=== PATIENT | male | born 1955 | race African-American/Black ===

== ENCOUNTER 2016-12-01 05:14 | Emergency (ER) | payer BC, OTHER ==
[2016-12-01 05:37] VITALS: BP 165/79; PULSE 59; TEMP 98.3; BMI 33.2
[2016-12-01] MEDS ORDERED: IBUPROFEN 400 MG TABLET (FP) PO ONE ×2 (05:46→05:49)
--- NOTE | 2016-12-01 05:54 | PDOC ---
History of Present Illness - General History Source: Patient <Alfredito Cerna - Last Filed: 12/01/16 06:19> - General History Source: Patient Exam Limitations: No Limitations - History of Present Illness Initial Comments: 12/01/16 05:54 The patient is a 60 year old male with significant past medical history of hypertension who presents to the ED for pain and swelling of the right knee s/p mechanical fall prior to arrival. 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 No head trauma or LOC. States he sustained pain and swelling of the right knee. Patient also states he felt a pop and is unable to bear weight secondary to pain. The patient denies fever, chills, cough, SOB, chest pain, and palpitations. The patient denies abdominal pain, nausea, vomiting, and diarrhea. Allergies: penicillin Social History: No alcohol, tobacco, or drug use reported. Past Surgical History: appendectomy PCP: Dr. Vanesa Hung <Carola Angeles - Last Filed: 12/01/16 06:25> - General Chief Complaint: Pain, Acute Stated Complaint: RIGHT KNEE INJURY Time Seen by Provider: 12/01/16 05:44 Past History - Past Medical History HTN: Yes - Surgical History Appendectomy: Yes - Immunization History Immunization Up to Date: Yes - Psycho/Social/Smoking Cessation Hx Anxiety: No Suicidal Ideation: No Smoking Status: No Smoking History: Never smoked Have you smoked in the past 12 months: No Number of Cigarettes Smoked Daily: 0 Information on smoking cessation initiated: No Hx Alcohol Use: Yes Drug/Substance Use Hx: No Substance Use Type: None <Aidee Cernaan - Last Filed: 12/01/16 06:19> <Carola Angeles - Last Filed: 12/01/16 06:25> - Past Medical History Allergies/Adverse Reactions: Allergies Allergy/AdvReac Type Severity Reaction Status Date / Time Penicillins Allergy Intermediate Verified 12/01/16 05:29 Home Medications: Ambulatory Orders Ibuprofen 800 mg PO TID #30 tablet 12/01/16 Nebivolol HCl [Bystolic] 10 mg PO DAILY 12/01/16 Oxycodone HCl/Acetaminophen [Percocet 5-325 mg Tablet] 1 - 2 tab PO Q6H #20 tablet MDD 4 12/01/16 Review of Systems - Review of Systems Able to Perform ROS?: Yes Comments:: 12/01/16 05:55 CONSTITUTIONAL: Absent: fever, no chills, no fatigue EYES: Absent: visual changes ENT: Absent: ear pain, no sore throat CARDIOVASCULAR: Absent: chest pain, no palpitations RESPIRATORY: Absent: cough, no SOB GI: Absent: abdominal pain, no nausea, no vomiting, no constipation, no diarrhea GENITOURINARY: Absent: dysuria, no frequency, no hematuria MUSCULOSKELETAL: +right knee pain and swelling Absent: back pain, no myalgia SKIN: Absent: rash NEURO: Absent: headache <Carola Angeles - Last Filed: 12/01/16 06:25> *Physical Exam - Vital Signs Last Vital Signs Temp Pulse Resp BP Pulse Ox 98.3 F 59 L 20 165/79 99 12/01/16 05:23 12/01/16 05:23 12/01/16 05:23 12/01/16 05:23 12/01/16 05:23 <Alfredito Cerna - Last Filed: 12/01/16 06:19> - Vital Signs Last Vital Signs Temp Pulse Resp BP Pulse Ox 98.3 F 59 L 20 165/79 99 12/01/16 05:23 12/01/16 05:23 12/01/16 05:23 12/01/16 05:23 12/01/16 05:23 - Physical Exam Comments: 12/01/16 05:55 GENERAL: Well-appearing, well-nourished. No apparent distress. HEENT: Normocephalic, atraumatic. No racoon or pinedo sign. PERRL, EOM intact. No hemotympanum. CARDIOVASCULAR: Normal S1, S2. Regular rate and rhythm. PULMONARY: Clear to auscultation bilaterally. ABDOMEN: Soft, non-distended, non-tender. EXTREMITIES: Decreased ROM of the right knee secondary to pain. Tenderness and moderate swelling throughout the entire right patella region. No bony deformity. No calf tenderness. SKIN: Warm, dry. No rash NEUROLOGICAL: No focal neurological deficits. <Carola Angeles - Last Filed: 12/01/16 06:25> ED Treatment Course - RADIOLOGY Radiology Studies Ordered: Category Date Time Status KNEE 3 POS-RIGHT [RAD] Stat Radiology 12/01/16 05:46 Ordered <Alfredito Cerna - Last Filed: 12/01/16 06:19> Medical Decision Making - Medical Decision Making 12/01/16 06:21 Dr. Cerna: The scribe's documentation has been prepared under my direction and personally reviewed by me in its entirery. I confirm that the note above accurately reflects all work, treatment, procedures, and medical decision making performed by me. <Alfredito Cerna - Last Filed: 12/01/16 06:19> - Medical Decision Making 12/01/16 06:[address] Vanesa Hung (via answering service) at 6:24 Awaiting call back 12/01/16 06:25 patient's case discussed with Dr. Hung at 6:25 <Carola Angeles - Last Filed: 12/01/16 06:25> *DC/Admit/Observation/Transfer - Discharge Dispostion Admit: No <Alfredito Cerna - Last Filed: 12/01/16 06:19> - Attestations Scribe Attestion: 12/01/16 05:55 Documentation prepared by Carola Angeles, acting as medical communication specialist for Alfredito Cerna MD/DO. <Carola Angeles - Last Filed: 12/01/16 06:25> Diagnosis at time of Disposition: Patellar fracture Qualifiers: Encounter type: initial encounter Fracture type: closed Fracture morphology: unspecified fracture morphology Fracture alignment: nondisplaced Laterality: right Qualified Code(s): S82.001A - Unspecified fracture of right patella, initial encounter for closed fracture - Discharge Dispostion Disposition: HOME Condition at time of disposition: Fair - Prescriptions Prescriptions: Ibuprofen 800 mg PO TID #30 tablet Oxycodone HCl/Acetaminophen [Percocet 5-325 mg Tablet] 1 - 2 tab PO Q6H #20 tablet MDD 4 - Referrals Referrals: Vanesa Hung MD [Primary Care Provider] - Robert Dewitt MD [Staff Physician] - - Patient Instructions Printed Discharge Instructions: DI for Patella Fracture Additional Instructions: Rest, ice elevate leg as much as possible. use crutches for weight bering. TAke medications as needed - Post Discharge Activity Work/School Note: Back to Work
== END 2016-12-01 06:45 | disposition home or self-care (01) ==
LOC: JER 05:14
DX: S82.001A Unspecified fracture of right patella, initial encounter for closed fracture (principal); V78.4XXA Person boarding or alighting from bus injured in noncollision transport accident, initial encounter; Y92.488 Other paved roadways as the place of occurrence of the external cause; Y93.89 Activity, other specified; Y99.0 Civilian activity done for income or pay; I10 Essential (primary) hypertension
CPT/HCPCS: 73562-TC-RT; 99282-25

== ENCOUNTER 2018-03-08 04:20 | Emergency (ER) | payer OTHER ==
[2018-03-08 04:33] VITALS: BMI 32.5
[2018-03-08] MEDS ORDERED: NEBIVOLOL 10 MG TABLET (FP) PO ONE (04:35)
[2018-03-08] MEDS ORDERED: SODIUM CHLORIDE 0.9% 1000 ML INFUS.BAG IV ONE (04:36)
[2018-03-08] MEDS ORDERED: ACETAMINOPHEN 1000 MG/100 ML VIAL (NON FORMULARY) IVPB ONE (04:36)
[2018-03-08] MEDS ORDERED: ACETAMINOPHEN INJECTION 100 ML IVPB ONE (04:55)
--- NOTE | 2018-03-08 05:11 | PDOC ---
Attending Attestation - Resident Resident Name: Rik Rossony - ED Attending Attestation I have performed the following: I have examined & evaluated the patient, The case was reviewed & discussed with the resident, I agree w/resident's findings & plan - HPI HPI: 03/08/18 05:07 62-year-old male with history of hypertension presents with 1 day of nasal congestion, sore throat, chest congestion with dry cough, body aches. No fevers or chills, no recent travel, no shortness of breath or persistent chest pain. Nonsmoker, has no underlying lung disease. 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 No history of recurring pneumonia or pharyngitis, no painful swallowing or difficulty swallowing. Patient was on his way to work this morning. Had myalgias and a slight headache so he presents to the emergency department for work note. - Physicial Exam PE: 03/08/18 05:09 Vital signs normal, blood pressure notably elevated at 180/110, has not taken his blood pressure medications yet. Well-appearing lying comfortably in stretcher, speaking full sentences, no respiratory distress Positive nasal congestion, Oropharynx is clear, slight erythema without swelling , no exudate or plaque Neck is supple, no notable lymphadenopathy Lungs are clear, no accessory muscle use, no wheezing Heart is regular, no murmur Neurologically intact, no edema - Medical Decision Making 03/08/18 05:10 62-year-old male with nasal congestion, dry cough, myalgias that seem most consistent with early viral URI. No clinical evidence for pneumonia, patient is well-appearing with normal vital signs in no acute respiratory distress. The patient does have elevated blood pressures without red flags on history or physical exam, no evidence for ACS. EKG is normal CXR We'll check labs and gave IV fluid rehydration with Tylenol Reassess and disposition accordingly Heart Score/ECG Review #1 ECG reviewed & interpreted by me at: 04:50 General ECG Interpretation: Sinus Rhythm, Normal Rate, Normal Intervals (RBBB), No acute ischemic changes
--- NOTE | 2018-03-08 05:11 | PDOC ---
History of Present Illness - General Chief Complaint: Sore Throat Stated Complaint: THROAT PAIN Time Seen by Provider: 03/08/18 04:25 History Source: Patient Exam Limitations: No Limitations - History of Present Illness Initial Comments: 03/08/18 04:50 The patient is a 62M with a PMH of HTN who presents to the ER with complaints of chest tightness, sore throat, and headache. The patient states that yesterday he developed tightness in his chest and a "rattle" when he coughed. He states that since then, his sickness has progressed to a sore throat, runny nose, and headache. He admits to an intermittent cough and 1 bout of diarrhea but denies fever, chills, nausea, vomiting, current CP, and SOB. Past History - Past Medical History Allergies/Adverse Reactions: Allergies Allergy/AdvReac Type Severity Reaction Status Date / Time Penicillins Allergy Intermediate Verified 03/08/18 04:33 Home Medications: Ambulatory Orders Ibuprofen 800 mg PO TID #30 tablet 12/01/16 Nebivolol HCl [Bystolic] 10 mg PO DAILY 12/01/16 Oxycodone HCl/Acetaminophen [Percocet 5-325 mg Tablet] 1 - 2 tab PO Q6H #20 tablet MDD 4 12/01/16 HTN: Yes - Surgical History Appendectomy: Yes - Immunization History Immunization Up to Date: Yes - Suicide/Smoking/Psychosocial Hx Smoking Status: No Smoking History: Never smoked Have you smoked in the past 12 months: No Number of Cigarettes Smoked Daily: 0 Information on smoking cessation initiated: No Hx Alcohol Use: No Drug/Substance Use Hx: No Substance Use Type: None Review of Systems - Review of Systems Able to Perform ROS?: Yes Comments:: 03/08/18 05:12 GENERAL/CONSTITUTIONAL: No fever or chills. No weakness. HEAD, EYES, EARS, NOSE AND THROAT: Positive for sore throat. No change in vision. No ear pain or discharge. CARDIOVASCULAR: Positive for resolved CP. No palpitations or lightheadedness. RESPIRATORY: Positive for cough. No wheezing, shortness of breath, or hemoptysis. GASTROINTESTINAL: Positive diarrhea. No nausea, vomiting, constipation, or abdominal pain. GENITOURINARY: No dysuria, frequency, hematuria, or change in urination. MUSCULOSKELETAL: No joint or muscle swelling or pain. No neck or back pain. SKIN: No rash or lesions. NEUROLOGIC: No headache, numbness, tingling, focal weakness, loss of consciousness, or change in strength/sensation. Is the patient limited Telugu proficient: No *Physical Exam - Vital Signs Last Vital Signs Temp Pulse Resp BP Pulse Ox 98.3 F 67 20 185/100 98 03/08/18 04:26 03/08/18 04:26 03/08/18 04:26 03/08/18 04:26 03/08/18 04:26 - Physical Exam Comments: 03/08/18 05:13 GENERAL: Well developed, well nourished. Awake and alert. No acute distress. HEENT: Normocephalic, atraumatic. Hearing grossly normal. Moist mucous membranes. PERRLA, EOMI. No conjunctival pallor. Sclera are non-icteric. Oropharynx is mildly erythematous. NECK: Supple. Full ROM. No JVD. Mild cervical lymphadenopathy. CARDIOVASCULAR: Regular rate and rhythm. No murmurs, rubs, or gallops. PULMONARY: No evidence of respiratory distress. Lungs clear to auscultation bilaterally. No wheezing, rales or rhonchi. ABDOMINAL: Soft. Non-tender. Non-distended. No rebound or guarding. GENITOURINARY: No CVA tenderness bilaterally. MUSCULOSKELETAL: Normal range of motion at all joints. No bony deformities or tenderness. EXTREMITIES: No cyanosis. No clubbing. No edema. No calf tenderness or swelling. SKIN: Warm and dry. Normal capillary refill. No rashes. No jaundice. NEUROLOGICAL: Alert, awake, appropriate. Cranial nerves 2-12 grossly intact. Normal speech. Gait is normal without ataxia. PSYCHIATRIC: Cooperative. Good eye contact. Appropriate mood and affect. Heart Score/ECG Review #1 ECG reviewed & interpreted by me at: 04:55 General ECG Interpretation: Sinus Rhythm, Normal Rate, Normal Intervals, No acute ischemic changes Compared to previous ECG there are: Previous ECG unavail 03/08/18 05:14 NSR vent rate 60 MI 190 QRS 124 QTc 397 RBBB No CASH or STD No signs of acute ischemia No priors ED Treatment Course - LABORATORY CBC & Chemistry Diagram: 03/08/18 05:10 03/08/18 05:10 - RADIOLOGY Radiology Studies Ordered: Category Date Time Status CHEST PA & LAT [RAD] Stat Radiology 03/08/18 04:36 Ordered Medical Decision Making - Medical Decision Making 03/08/18 05:15 The patient is a 62M with a PMH of HTN who presents with a likely viral syndrome. Will hydrate, give fluids and tylenol and check basic labs. EKG unremarkable. Pending labs. Preliminary read of CXR negative for acute pathology. Low concern for ACS as the patient has an atypical story and resolved CP. 03/08/18 05:51 CBC and CMP WNL. WIll d/c with PCP f/u. *DC/Admit/Observation/Transfer Diagnosis at time of Disposition: Viral syndrome - Discharge Dispostion Disposition: HOME Condition at time of disposition: Stable Decision to Admit order: No - Referrals Referrals: Vanesa Hung MD [Primary Care Provider] - - Patient Instructions Printed Discharge Instructions: DI for Viral Syndrome Additional Instructions: Please follow up with your primary care physician in 2-3 days. Take tylenol or motrin as needed for comfort and pain. Please return to the ER if you have any signs or symptoms of chest pain, shortness of breath, uncontrollable fever, chills, nausea, vomiting, numbness, tingling, or weakness in any part of your body, changes in vision, or slurred speech. Please return to the ER if symptoms persist, worsen, or new symptoms arise. - Post Discharge Activity
[2018-03-08 05:23] LABS: BASO % 0.8 % (0-2.0); EOS % 2.8 % (0-4.5); HEMATOCRIT 44.4 % (35.4-49); HEMOGLOBIN 14.3 GM/dL (11.7-16.9); LYMPH % 8.2 % (8-40); MCH 26.3 pg (25.7-33.7); MCHC 32.3 g/dl (32.0-35.9); MEAN CELL VOLUME 81.5 fl (80-96); MEAN PLT VOLUME 8.8 fl (7.5-11.1); MONO % 7.6 % (3.8-10.2); NEUT % 80.6 % (42.8-82.8); PLATELET COUNT 124 K/MM3 (134-434); RBC 5.44 M/mm3 (4.00-5.60); RDW 15.3 % (11.9-15.9)
[2018-03-08 05:33] VITALS: BP 158/112; PULSE 69; TEMP 97.7
[2018-03-08 05:46] LABS: ALBUMIN 3.4 g/dl (3.4-5.0); ANION GAP 8 MMOL/L (8-16); BILIRUBIN,TOTAL 0.8 mg/dL (0.2-1.0); BLOOD UREA NITROGEN 20 mg/dL (7-18); CALCIUM 8.5 mg/dL (8.5-10.1); CHLORIDE 109 mmol/L (98-107); CO2 27 mmol/L (21-32); CREATININE 0.9 mg/dL (0.7-1.3); GLUCOSE,RANDOM 97 mg/dL (74-106); POTASSIUM 3.9 mmol/L (3.5-5.1); SGOT/AST 40 U/L (15-37); SGPT/ALT 52 U/L (12-78); SODIUM 144 mmol/L (136-145); TOT PROT 7.2 g/dl (6.4-8.2)
[2018-03-08 05:47] LABS: ALK PHOS 85 U/L (45-117)
--- NOTE | 2018-03-08 13:46 | EKG ---
Test Reason : Blood Pressure : / mmHG Vent. Rate : 062 BPM Atrial Rate : 062 BPM P-R Int : 190 ms QRS Dur : 124 ms QT Int : 392 ms P-R-T Axes : -05 -38 028 degrees QTc Int : 397 ms NORMAL SINUS RHYTHM LEFT AXIS DEVIATION NON-SPECIFIC INTRA-VENTRICULAR CONDUCTION DELAY ABNORMAL ECG WHEN COMPARED WITH ECG OF 20-OCT-2008 07:18, QRS AXIS SHIFTED LEFT NONSPECIFIC T WAVE ABNORMALITY NOW EVIDENT IN LATERAL LEADS Confirmed by GIRMA DOWNS MD ([id number]) on 03/08/2018 1:46:28 PM Referred By: Confirmed By:GIRMA DOWNS MD
== END 2018-03-08 06:10 | disposition home or self-care (01) ==
LOC: JER 04:20
DX: J06.9 Acute upper respiratory infection, unspecified (principal); B97.89 Other viral agents as the cause of diseases classified elsewhere
CPT/HCPCS: 36415; 71046-TC-FY; 80053; 85025; 93005; 93010; 99281-25; J0131; J7030

== ENCOUNTER 2018-10-28 08:43 | Emergency (ER) | payer OTHER ==
[2018-10-28 08:48] VITALS: BMI 32.5
[2018-10-28] MEDS ORDERED: SODIUM CHLORIDE 0.9% 1000 ML INFUS.BAG IV ONE (09:34)
--- NOTE | 2018-10-28 09:41 | PDOC ---
History of Present Illness - General Chief Complaint: Diarrhea Stated Complaint: DIARRHEA History Source: Patient Exam Limitations: No Limitations - History of Present Illness Initial Comments: 10/28/18 09:36 62 yo male no pmhx here recently returned from [facility] now having 48 hrs of loose watery stools, over 10 stools all nonbloody. pt states he mostly ate food in his hotel. didn't head outmuch. does describe chills, no f/ no nv no abd pain. no blood in stool. no other complaints except has tingling feeling in his arms. no weakness not lightheaded. Past History - Past Medical History Allergies/Adverse Reactions: Allergies Allergy/AdvReac Type Severity Reaction Status Date / Time Penicillins Allergy Intermediate Verified 10/28/18 08:48 Home Medications: Ambulatory Orders Nebivolol HCl [Bystolic] 10 mg PO DAILY 12/01/16 Ciprofloxacin [Cipro -] 500 mg PO Q12H #10 tablet 10/28/18 COPD: No HTN: Yes - Surgical History Appendectomy: Yes - Immunization History Immunization Up to Date: Yes - Suicide/Smoking/Psychosocial Hx Smoking Status: No Smoking History: Never smoked Have you smoked in the past 12 months: No Number of Cigarettes Smoked Daily: 0 Hx Alcohol Use: No Drug/Substance Use Hx: No Substance Use Type: None Review of Systems - Review of Systems Constitutional: Yes: Chills. No: Diaphoresis HEENTM: No: Eye Pain Respiratory: No: Cough, Orthopnea, Shortness of Breath ABD/GI: Yes: Diarrhea. No: Nausea : No: Burning, Dysuria, Discharge Musculoskeletal: No: Back Pain Integumentary: No: Bruising Neurological: No: Tingling Psychiatric: No: Frequent Crying Endocrine: No: Excessive Sweating All Other Systems: Reviewed and Negative *Physical Exam - Vital Signs Last Vital Signs Temp Pulse Resp BP Pulse Ox 97.4 F L 73 18 111/76 97 10/28/18 08:45 10/28/18 08:45 10/28/18 08:45 10/28/18 08:45 10/28/18 08:45 - Physical Exam Comments: 10/28/18 09:40 awake alert lungs clear bilaterally heart rrr no mrg abd soft nt nd ext wwp no edema. no calf tenderness. skin warm and dry. ED Treatment Course - LABORATORY CBC & Chemistry Diagram: 10/28/18 10:00 10/28/18 10:00 Medical Decision Making - Medical Decision Making 10/28/18 09:41 62 yo male here with diarreha following travel to [facility]. differential dehydration electrolyte abnormality, pancreatitis, viral or infectious GE/ colitis. plan stool studies, ivf labs lipase. will likely treat with cipro and flagyl due to recent travel. 10/28/18 11:37 pt labs unremarkable. occult negative. will treat with flouroquinolone for travelers diarrhea. *DC/Admit/Observation/Transfer Diagnosis at time of Disposition: Colitis - Discharge Dispostion Disposition: HOME Condition at time of disposition: Improved Decision to Admit order: No - Prescriptions Prescriptions: Ciprofloxacin [Cipro -] 500 mg PO Q12H #10 tablet - Referrals Referrals: Vanesa Hung MD [Primary Care Provider] - Yajaira Ballesteros DO [Staff Physician] - - Patient Instructions Printed Discharge Instructions: DI for Colitis Additional Instructions: you should take ciprofloxacin twice daily for 5 days. follow up with your primary doctor. you should return for bloody stools, high fever, vomiting pain or any concerns. you can also follow up with a gastroneterologist see referral for Dr Ballesteros, and call to schedule. - Post Discharge Activity
[2018-10-28 10:13] LABS: BASO % 0.3 % (0-2.0); EOS % 0.2 % (0-4.5); HEMATOCRIT 48.5 % (35.4-49); HEMOGLOBIN 15.8 GM/dL (11.7-16.9); LYMPH % 7.5 % (8-40); MCHC 32.6 g/dl (32.0-35.9); MEAN CELL VOLUME 82.9 fl (80-96); MEAN PLT VOLUME 8.8 fl (7.5-11.1); PLATELET COUNT 145 K/MM3 (134-434); RBC 5.85 M/mm3 (4.00-5.60); WHITE BLOOD COUNT 5.9 K/mm3 (4.0-10.0)
[2018-10-28 10:59] LABS: ALBUMIN 3.5 g/dl (3.4-5.0); ALK PHOS 82 U/L (45-117); ANION GAP 7 MMOL/L (8-16); BLOOD UREA NITROGEN 21 mg/dL (7-18); CALCIUM 8.8 mg/dL (8.5-10.1); CHLORIDE 104 mmol/L (98-107); CO2 27 mmol/L (21-32); CREATININE 1.4 mg/dL (0.55-1.3); GLUCOSE,RANDOM 105 mg/dL (74-106); LIPASE 55 U/L (73-393); POTASSIUM 4.6 mmol/L (3.5-5.1); SGOT/AST 42 U/L (15-37); SGPT/ALT 45 U/L (13-61); SODIUM 139 mmol/L (136-145); TOT PROT 7.5 g/dl (6.4-8.2)
[2018-10-28] MEDS ORDERED: ACETAMINOPHEN 325 MG TABLET (FP) PO ONE (11:47)
[2018-10-28] MEDS ORDERED: ACETAMINOPHEN 325 MG TABLET (FP) ONE (11:51)
[2018-10-28 11:56] VITALS: PULSE 67; TEMP 97.9
[2018-10-28 12:01] VITALS: BP 107/83
== END 2018-10-28 12:06 | disposition home or self-care (01) ==
LOC: JER 08:43
DX: K52.9 Noninfective gastroenteritis and colitis, unspecified (principal); I10 Essential (primary) hypertension
CPT/HCPCS: 36415; 80053; 82272; 83690; 85025; 87045; 87046; 87177; 87209; 99283-25; J7030

== ENCOUNTER 2020-02-20 06:58 | Day surgery (SDC) | payer OTHER ==
[2020-02-17 17:25] VITALS: BMI 33.3
--- NOTE | 2020-02-19 20:02 | HP ---
Satellite [facility] - Chief Complaint Chief Complaint: left hand mass - Past Medical History Allergies/Adverse Reactions: Allergies Allergy/AdvReac Type Severity Reaction Status Date / Time Penicillins Allergy Intermediate Hives Verified 02/17/20 17:15 - Current Medications Current Medications: Home Medications Medication Instructions Recorded Nebivolol HCl [Bystolic] 10 mg PO DAILY 12/01/16 Lisinopril 10 mg PO DAILY 02/17/20 Satellite Physical Exam - Physical Examination General Appearance: Well Nourished, Well Developed, Alert & Oriented x3 ENT: Clear Lung: Normal air movement Extremities: Other (left hand- + mass, nvi) Neurological: Intact, Alert, Oriented Satellite Impression/Plan - Impression/Plan Impression: left hand mass Operative Procedure: left hand mass excision Date to be Performed: 02/20/20
[2020-02-20] MEDS ORDERED: LIDOCAINE HCL/PF 2% SDV 5ML VIAL ONE (07:02)
[2020-02-20] MEDS ORDERED: MIDAZOLAM HCL 2 MG/2 ML SINGLE DOSE VIAL ONE ×2 (07:03→08:33)
[2020-02-20] MEDS ORDERED: PROPOFOL 20 ML ONE ×2 (07:03)
[2020-02-20] MEDS ORDERED: BUPIVACAINE HCL/PF 0.5% (5MG/ML) 10 ML VIAL ONE (07:13)
[2020-02-20] MEDS ORDERED: LIDOCAINE HCL 1%, 10 MG/ML (20ML VIAL) ONE (07:13)
[2020-02-20] MEDS ORDERED: ONDANSETRON 4 MG/2 ML VIAL IVPUSH PRN (07:19)
[2020-02-20] MEDS ORDERED: oxyCODONE HCL 5 MG TABLET PO PRN ×2 (07:19)
[2020-02-20] MEDS ORDERED: LACTATED RINGERS SOLUTION 1,000 ML IV SCH (07:30)
[2020-02-20] MEDS ORDERED: KETOROLAC TROMETHAMINE 30 MG/1 ML VIAL ONE (08:37)
[2020-02-20] MEDS ORDERED: ONDANSETRON 4 MG/2 ML VIAL ONE (08:37)
[2020-02-20] MEDS ORDERED: LIDOCAINE HCL 1%, 10 MG/ML (20ML VIAL) INF ONE (08:45)
[2020-02-20] MEDS ORDERED: BUPIVACAINE HCL/PF 0.5% (5 MG/ML) 30 ML VIAL IJ ONE (08:45)
[2020-02-20] MEDS ORDERED: ceFAZolin SODIUM 1 GM VIAL ONE (08:50)
[2020-02-20] MEDS ORDERED: SODIUM CHLORIDE 0.9% P/F 10 ML VIAL IJ ONE (08:50)
--- NOTE | 2020-02-20 09:18 | OP ---
Operative Note - Note: Operative Date: 02/20/20 Pre-Operative Diagnosis: left hand messes, possible Dupuytren's Disease Operation: excision left hand Dupuytren's tissue Findings: Dupuytren's tissue Post-Operative Diagnosis: Same as Pre-op Surgeon: Robert Dewitt Anesthesiologist/RD MECHANICAL ENGINEER: Preston Koch Anesthesia: Local, MAC Specimens Removed: tissue left hand, likely Dupuytren's tissue Estimated Blood Loss (mls): 0 Drains, Volume Out (mls): 0 Blood Volume Replaced (mls): 0 Fluid Volume Replaced (mls): 500 Operative Report Dictated: Yes
[2020-02-20 09:46] VITALS: PULSE 44; TEMP 97.7
--- NOTE | 2020-02-20 09:59 | OP ---
DATE OF OPERATION: 02/20/2020 LOCATION: [facility]. PREOPERATIVE DIAGNOSIS: Left hand mass, possible Dupuytren tissue. POSTOPERATIVE DIAGNOSIS: Dupuytren tissue. PROCEDURE: Left hand Dupuytren excision. SURGEON: Robert Hunter MD ASSISTANTS: None. ANESTHESIOLOGIST: Zandra Koch MD ANESTHESIA: MAC anesthesia with local injection, 10 mL, 0.5% Marcaine/1% lidocaine mix. DRAINS: None. COMPLICATIONS: None. SPECIMEN: Tissue, left hand, likely Dupuytren tissue. BLOOD LOSS: None. BLOOD GIVEN: None. FLUID REPLACEMENT: Plasma-Lyte, 500 mL. INDICATION: This patient is a 64-year-old male with a preoperative diagnosis of 2 masses in his left palm that are extremely uncomfortable. After understanding the potential risks, complications, alternatives and benefits of surgery versus nonsurgical treatment, the patient elected to undergo this procedure. He understands that he will have a scar on his hand. He may need additional treatment, if it is Dupuytren tissue that there is a thickening of the skin that may remain. The tissue may grow back. He may develop future flexion contractures and may need additional surgical excision. DESCRIPTION OF PROCEDURE: Patient was brought into the operating room, peripheral IV placed, IV sedation given. IV Ancef 2 g were given with no reaction (even though he has a PENICILLIN allergy) for future reference. He was placed into the supine position. Left upper extremity had a tourniquet applied to the left upper arm. It was elevated, exsanguinated with an Esmarch bandage. Tourniquet inflated to 250 mmHg. A diagonal-shaped incision was marked out over the 3 areas of excision, 2 masses and 1 longitudinal cord going into the base of the small finger. Marcaine 0.5%/1% lidocaine mix, 10 mL, was injected in and around the surgical incision. An incision was made with a No. 15 scalpel blade. Subcutaneous hemostasis achieved with the bipolar cautery. Dissection was done with a Littler scissors as well as a fresh No. 15 scalpel blade the abnormal fibrotic mass tissue from the deep dermal layer. The lead hand was used, 2-0 silk sutures for retraction and a small cricket self-retaining retractor. Immediately, it was apparent this was Dupuytren tissue. There were 2 large cords with connecting bands and bands going distal and proximal. Starting distally where it seemed to diminish by the volar crease at the base of the small finger, I was able to dissect around the Dupuytren tissue, put a retractor on it, pull it up and excise it in its entirety. I was able to cut it distally and proximally and pass it off the field. It was a relatively large amount of tissue. The area was copiously irrigated and washed out. At that point, I could not see or feel any abnormal tissues or contractions or tight bands. Closure was then done with 4-0 undyed Vicryl in the deep dermal layer, and final skin reapproximation was done with a row of 4-0 nylon sutures. The area was then washed and dried and covered with Xeroform gauze, 4 x 4 gauze, fluffs between the fingers, Webril and Coban. Tourniquet was taken down after a total tourniquet time of 30 minutes. There were no complications during the case. The patient tolerated the procedure very well and was brought to the ambulatory recovery room in stable condition. ROBERT HUNTER M.D. [id number]
[2020-02-20 10:16] VITALS: BP 141/71
--- NOTE | 2020-02-24 15:35 | PATH ---
Surgical Pathology Report Patient Name: ESTEFANY HOWARD [facility]. Rec. #: [id number] /Age/Gender: 1955 (Age: 64) / M Account: [id number] Location: [facility] AMBULATORY Taken: 02/20/2020 Received: 02/20/2020 Reported: 02/24/2020 Physicians: Robert Dewitt M.D. Specimen(s) Received LEFT HAND MASS X2 Clinical History Left hand mass x2 Final Diagnosis "HAND MASS X2", LEFT, EXCISION: CONSISTENT WITH PALMAR FIBROMATOSIS. Electronically Signed Yajaira Loomis M.D. Gross Description Received in formalin labeled "left hand mass x2," is a 2.4 x 1.8 x 0.4 cm vidales-yellow portion of fibrous tissue. There is no additional tissue within the container. The specimen is submitted in toto in one cassette. /02/21/2020 [facility]02/21/2020
== END 2020-02-20 10:25 | disposition home or self-care (01) ==
LOC: FASU 06:58
PROVIDERS: ATTEND Orthopaedic Surgery
PROC: 0JNJ0ZZ Release Right Hand Subcutaneous Tissue and Fascia, Open Approach (ICD-10-PCS; principal; 2020-02-20 08:45)
DX: M72.0 Palmar fascial fibromatosis [Dupuytren] (principal)
CPT/HCPCS: 88304-TC